=== PATIENT | male | born 1985 | race Caucasian/White ===

== ENCOUNTER 2020-03-23 16:18 | Inpatient (IN) | payer MEDICAID, OTHER ==
[~2020-03-23] VITALS: Ht 167.6 cm; Wt 86.2 kg
[2020-03-23] MEDS ORDERED: ACETAMINOPHEN 325MG TABLET PO STA (17:32)
[2020-03-23] MEDS ORDERED: SODIUM CHLORIDE 0.9% 1,000 ML IV ONE (17:32)
[2020-03-23] MEDS ORDERED: ACETAMINOPHEN WITH CODEINE 300/30MG TABLET PO STA (17:32)
[2020-03-23 18:06] LABS: CHLORIDE 110 mEq/L (98-107)
[2020-03-23 18:15] LABS: CREATINE KINASE 364 IU/L (39-308)
[2020-03-23] MEDS ORDERED: AZITHROMYCIN 500 MG in DEXT 5% WATER 250 ML IV ONE (18:15)
[2020-03-23] MEDS ORDERED: CEFTRIAXONE 1 G PREMIX 50 ML IV ONE (18:15)
[2020-03-23 18:38] LABS: D-DIMER 0.25 mg/L FEU (<0.50); PROTHROMBIN TIME 10.5 sec (9.6-11.0)
[2020-03-23 19:42] LABS: BASOPHILS % 0.4 % (0.0-2.0); HEMATOCRIT. 41.5 % (42.0-52.0); HEMOGLOBIN. 14.4 g/dL (14.0-18.0); LYMPHOCYTES % 10.4 % (20.0-50.0); MEAN CORPUSCULAR HEMOGLOBIN 30.7 pg (28.0-32.0); MEAN CORPUSCULAR VOLUME 88.6 fL (80.0-94.0); MEAN PLATELET VOLUME 8.3 fl (7.4-10.4); MONOCYTES % 5.4 % (2.0-8.0); NEUTROPHILS % 83.8 % (40.0-76.0); PLATELET 165 x1000/uL (130-400); RED BLOOD CELL COUNT 4.68 mill/uL (4.7-6.1); RED CELL DISTRIBUTION WIDTH 12.6 % (11.6-14.6)
[2020-03-23] MEDS ORDERED: ALBUTEROL 6.7GM HFA INHALER ORI PRN (19:45)
[2020-03-23] MEDS ORDERED: ONDANSETRON HCL 4MG/2ML INJ IV PRN (19:45)
[2020-03-23 19:48] LABS: CLARITY URINE CLEAR (CLEAR); COLOR URINE YELLOW (YELLOW); KETONES URINE NEGATIVE (NEGATIVE); LEUKOCYTE ESTERASE URINE NEGATIVE (NEGATIVE); NITRITE URINE NEGATIVE (NEGATIVE); OCCULT BLOOD URINE NEGATIVE (NEGATIVE); PROTEIN URINE TRACE (NEGATIVE); SPECIFIC GRAVITY URINE 1.015 (1.005-1.030); UROBILINOGEN URINE 0.2 E.U./dL (0.2-1.0)
[2020-03-23 21:45] VITALS: BP 102/67
[2020-03-23] MEDS: SODIUM CHLORIDE 0.9% INJ 3ML FLUSH IVF SCH (23:23)
[2020-03-24] MEDS: ACETAMINOPHEN 325MG TABLET PO PRN ×3 (00:05→21:24)
[2020-03-24 00:20] VITALS: BP 111/65
[2020-03-24 04:00] VITALS: BP 113/68
[2020-03-24] MEDS: SODIUM CHLORIDE 0.9% INJ 3ML FLUSH IVF SCH ×3 (06:09→21:26)
[2020-03-24 07:49] VITALS: BP 108/69
[2020-03-24 11:51] VITALS: BP 117/73
[2020-03-24] MEDS: DEXAMETHASONE 10 MG/ML VIAL IV SCH (15:41)
[2020-03-24 16:00] VITALS: BP 116/78
[2020-03-24] MEDS: CEFTRIAXONE 1 G PREMIX 50 ML IV SCH (17:01)
[2020-03-24] MEDS ORDERED: CEFTRIAXONE 1 G PREMIX 50 ML IV SCH (18:00)
[2020-03-24] MEDS: AZITHROMYCIN 500 MG in DEXT 5% WATER 250 ML IV SCH (18:03)
[2020-03-24] MEDS ORDERED: AZITHROMYCIN 500 MG in DEXT 5% WATER 250 ML IV SCH (19:00)
[2020-03-24 20:00] VITALS: BP 111/70
[2020-03-25] VITALS: BP 113/69
[2020-03-25 04:00] VITALS: BP 106/70
[2020-03-25 05:17] LABS: CHLORIDE 107 mEq/L (98-107)
[2020-03-25] MEDS: SODIUM CHLORIDE 0.9% INJ 3ML FLUSH IVF SCH ×3 (05:28→20:48)
[2020-03-25] MEDS: GUAIFENESIN 200MG/10ML SUGAR FREE UDC PO PRN ×2 (05:59→16:01)
[2020-03-25 08:00] VITALS: BP 113/71
[2020-03-25] MEDS: DEXAMETHASONE 10 MG/ML VIAL IV SCH (08:10)
[2020-03-25] MEDS: ACETAMINOPHEN 325MG TABLET PO PRN ×2 (08:10→23:21)
[2020-03-25 12:00] VITALS: BP 123/80
[2020-03-25] MEDS: ENOXAPARIN 100MG/ML SYR SUBCUT SCH ×2 (12:30→20:48)
[2020-03-25] MEDS: HYDROCODONE/ACETAMINOPHEN 5/325MG TABLET PO PRN (15:08)
[2020-03-25 16:00] VITALS: BP 125/80
[2020-03-25] MEDS: CEFTRIAXONE 1 G PREMIX 50 ML IV SCH (17:04)
[2020-03-25] MEDS: ALBUTEROL 6.7GM HFA INHALER ORI SCH (18:00)
[2020-03-25] MEDS: AZITHROMYCIN 500 MG in DEXT 5% WATER 250 ML IV SCH (19:04)
[2020-03-25 20:00] VITALS: BP 124/81
[2020-03-25] MEDS: ZOLPIDEM TARTRATE 5MG TABLET PO PRN (21:05)
[2020-03-25] MEDS: BENZONATATE 100MG CAPSULE PO PRN (21:05)
[2020-03-26] VITALS: BP 116/80
[2020-03-26 04:00] VITALS: BP 113/63
[2020-03-26] MEDS: ACETAMINOPHEN 325MG TABLET PO PRN ×3 (04:51→20:04)
[2020-03-26] MEDS: ALBUTEROL 6.7GM HFA INHALER ORI SCH ×5 (05:35→23:59)
[2020-03-26] MEDS: SODIUM CHLORIDE 0.9% INJ 3ML FLUSH IVF SCH ×3 (05:36→20:05)
[2020-03-26 08:00] VITALS: BP 115/71
[2020-03-26] MEDS: ENOXAPARIN 100MG/ML SYR SUBCUT SCH ×2 (08:28→20:05)
[2020-03-26] MEDS: DEXAMETHASONE 4MG TABLET PO SCH (08:28)
[2020-03-26 12:00] VITALS: BP 120/79
[2020-03-26 16:00] VITALS: BP 117/76
[2020-03-26] MEDS: CEFTRIAXONE 1 G PREMIX 50 ML IV SCH (17:04)
[2020-03-26] MEDS: AZITHROMYCIN 500 MG in DEXT 5% WATER 250 ML IV SCH (18:35)
[2020-03-26 20:00] VITALS: BP 113/74
[2020-03-26] MEDS: ZOLPIDEM TARTRATE 5MG TABLET PO PRN (20:04)
[2020-03-26] MEDS: BENZONATATE 100MG CAPSULE PO PRN (20:42)
[2020-03-27] VITALS: BP 131/83
[2020-03-27] MEDS: ACETAMINOPHEN 325MG TABLET PO PRN ×3 (00:09→15:26)
[2020-03-27 04:00] VITALS: BP 105/64
[2020-03-27] MEDS: SODIUM CHLORIDE 0.9% INJ 3ML FLUSH IVF SCH ×3 (05:25→22:36)
[2020-03-27] MEDS: ALBUTEROL 6.7GM HFA INHALER ORI SCH ×3 (05:25→17:45)
[2020-03-27 07:25] LABS: BASOPHILS % 0.3 % (0.0-2.0); HEMATOCRIT. 44.8 % (42.0-52.0); HEMOGLOBIN. 15.8 g/dL (14.0-18.0); LYMPHOCYTES % 9.1 % (20.0-50.0); MEAN CORPUSCULAR HEMOGLOBIN 30.5 pg (28.0-32.0); MEAN CORPUSCULAR VOLUME 86.8 fL (80.0-94.0); MEAN PLATELET VOLUME 8.8 fl (7.4-10.4); MONOCYTES % 6.7 % (2.0-8.0); NEUTROPHILS % 83.9 % (40.0-76.0); PLATELET 188 x1000/uL (130-400); RED BLOOD CELL COUNT 5.17 mill/uL (4.7-6.1); RED CELL DISTRIBUTION WIDTH 12.5 % (11.6-14.6)
[2020-03-27 07:49] LABS: CHLORIDE 106 mEq/L (98-107)
[2020-03-27 08:00] VITALS: BP 117/73
[2020-03-27] MEDS: LOPERAMIDE HCL 2MG CAPSULE PO PRN (08:59)
[2020-03-27] MEDS: ENOXAPARIN 100MG/ML SYR SUBCUT SCH ×2 (08:59→22:36)
[2020-03-27] MEDS: DEXAMETHASONE 4MG TABLET PO SCH ×2 (09:00→10:51)
[2020-03-27] MEDS: BENZONATATE 100MG CAPSULE PO PRN ×2 (09:02→23:50)
[2020-03-27 12:00] VITALS: BP 116/69
[2020-03-27] MEDS ORDERED: POTASSIUM CHLORIDE 20MEQ TABLET SR PO NR (12:00)
[2020-03-27 16:05] VITALS: BP 115/65
[2020-03-27 17:16] LABS: CHLORIDE 107 mEq/L (98-107)
[2020-03-27] MEDS: CEFTRIAXONE 1 G PREMIX 50 ML IV SCH (17:22)
[2020-03-27] MEDS: AZITHROMYCIN 500 MG in DEXT 5% WATER 250 ML IV SCH (18:10)
[2020-03-27 20:00] VITALS: BP 114/72
[2020-03-27] MEDS: HYDROCODONE/ACETAMINOPHEN 5/325MG TABLET PO PRN (22:37)
[2020-03-27] MEDS: ZOLPIDEM TARTRATE 5MG TABLET PO PRN (22:37)
[2020-03-27] MEDS: DIPHENHYDRAMINE 50MG/ML VIAL IV PRN (23:50)
[2020-03-28] VITALS: BP 110/70
[2020-03-28 08:01] VITALS: BP 107/59
[2020-03-28] MEDS: ENOXAPARIN 100MG/ML SYR SUBCUT SCH ×2 (08:21→21:42)
[2020-03-28] MEDS: GUAIFENESIN/CODEINE 200-20MG/10ML UDC PO PRN ×3 (08:21→23:22)
[2020-03-28] MEDS: SODIUM CHLORIDE 0.9% INJ 3ML FLUSH IVF SCH ×3 (08:22→21:56)
[2020-03-28] MEDS: DEXAMETHASONE 4MG TABLET PO SCH (08:22)
[2020-03-28] MEDS: ACETAMINOPHEN 325MG TABLET PO PRN ×2 (08:23→21:43)
[2020-03-28] MEDS: ALBUTEROL 6.7GM HFA INHALER ORI SCH ×4 (08:25→17:20)
[2020-03-28 12:00] VITALS: BP 111/73
[2020-03-28 16:00] VITALS: BP 116/68
[2020-03-28] MEDS: HYDROCODONE/ACETAMINOPHEN 5/325MG TABLET PO PRN (16:24)
[2020-03-28] MEDS: REMDESIVIR 200 MG in SODIUM CHLORIDE 0.9% 250 ML IV NR ×2 (16:25→16:36)
[2020-03-28] MEDS: CEFTRIAXONE 1 G PREMIX 50 ML IV SCH (17:22)
[2020-03-28 18:03] LABS: HCG SCREEN NEGATIVE
[2020-03-28 20:00] VITALS: BP 112/75
[2020-03-28] MEDS: TEMAZEPAM 15MG CAPSULE PO PRN (21:43)
[2020-03-29] VITALS (7 sets, daily range): BP systolic 97–124; BP diastolic 54–76
[2020-03-29] MEDS: SODIUM CHLORIDE 0.9% INJ 3ML FLUSH IVF SCH ×3 (05:45→22:00)
[2020-03-29] MEDS: ALBUTEROL 6.7GM HFA INHALER ORI SCH ×5 (06:11→23:28)
[2020-03-29 08:19] LABS: CHLORIDE 108 mEq/L (98-107)
[2020-03-29] MEDS: ENOXAPARIN 100MG/ML SYR SUBCUT SCH ×2 (08:35→21:59)
[2020-03-29] MEDS: DEXAMETHASONE 4MG TABLET PO SCH (08:36)
[2020-03-29] MEDS: REMDESIVIR 100 MG in SODIUM CHLORIDE 0.9% 250 ML IV SCH (13:14)
[2020-03-29] MEDS: LOPERAMIDE HCL 2MG CAPSULE PO PRN (22:00)
[2020-03-29] MEDS: ACETAMINOPHEN 325MG TABLET PO PRN (22:01)
[2020-03-29] MEDS: BENZONATATE 100MG CAPSULE PO PRN (23:27)
[2020-03-29] MEDS: TEMAZEPAM 15MG CAPSULE PO PRN (23:27)
[2020-03-29] MEDS: PROMETHAZINE/DEXTROMETHORPHAN 6.25-15MG/5ML BOTTLE 120ML PO PRN (23:28)
[2020-03-30] VITALS: BP 111/77
[2020-03-30 04:00] VITALS: BP 110/72
[2020-03-30] MEDS: SODIUM CHLORIDE 0.9% INJ 3ML FLUSH IVF SCH ×3 (05:55→20:26)
[2020-03-30] MEDS: ALBUTEROL 6.7GM HFA INHALER ORI SCH ×4 (05:56→23:57)
[2020-03-30] MEDS: ACETAMINOPHEN 325MG TABLET PO PRN (06:36)
[2020-03-30] MEDS: PROMETHAZINE/DEXTROMETHORPHAN 6.25-15MG/5ML BOTTLE 120ML PO PRN ×3 (06:36→20:32)
[2020-03-30 06:55] LABS: CHLORIDE 109 mEq/L (98-107)
[2020-03-30 08:00] VITALS: BP 104/64
[2020-03-30] MEDS: ENOXAPARIN 100MG/ML SYR SUBCUT SCH ×2 (09:15→20:26)
[2020-03-30] MEDS: BENZONATATE 100MG CAPSULE PO PRN ×2 (09:16→17:32)
[2020-03-30] MEDS: DEXAMETHASONE 4MG TABLET PO SCH (09:16)
[2020-03-30 12:00] VITALS: BP 108/71
[2020-03-30] MEDS: REMDESIVIR 100 MG in SODIUM CHLORIDE 0.9% 250 ML IV SCH (14:22)
[2020-03-30 16:00] VITALS: BP 109/74
[2020-03-30 20:00] VITALS: BP 111/76
[2020-03-30] MEDS: TEMAZEPAM 15MG CAPSULE PO PRN (21:56)
[2020-03-31] VITALS (7 sets, daily range): BP systolic 97–136; BP diastolic 58–72
[2020-03-31] MEDS: SODIUM CHLORIDE 0.9% INJ 3ML FLUSH IVF SCH ×3 (05:09→20:44)
[2020-03-31] MEDS: ALBUTEROL 6.7GM HFA INHALER ORI SCH ×3 (05:09→18:37)
[2020-03-31 05:25] LABS: CHLORIDE 105 mEq/L (98-107)
[2020-03-31] MEDS: ENOXAPARIN 100MG/ML SYR SUBCUT SCH ×2 (09:35→20:43)
[2020-03-31] MEDS: DEXAMETHASONE 4MG TABLET PO SCH (09:35)
[2020-03-31 13:04] LABS: BG BASE EXCESS -0.8 mmol/L (-2.0-2.0); BG CARBOXYHEMOGLOBIN 0.2 % (0.5-1.5); BG DEOXYHEMOGLOBIN 1.7 % (0.0-5.0); BG FRACTION INSPIRED OXYGEN 100; BG HCO3 ACT 23.1 mmol/L (22.0-26.0); BG METHEMOGLOBIN 0.3 % (0.0-1.5); BG OXYGEN SATURATION 98.3 % (92.0-98.5); BG OXYHEMOGLOBIN 97.8 % (94.0-97.0); BG PCO2 36.3 mmHg (35.0-45.0); BG PH 7.421 (7.350-7.450); BG PO2 127.8 mmHg (75.0-100.0); BG SAMPLE SITE RIGHT RADIAL; BG VENT MODE MASK - NRB
[2020-03-31] MEDS: REMDESIVIR 100 MG in SODIUM CHLORIDE 0.9% 250 ML IV SCH (13:55)
[2020-03-31] MEDS: ACETAMINOPHEN 325MG TABLET PO PRN (13:57)
[2020-03-31] MEDS: PROMETHAZINE/DEXTROMETHORPHAN 6.25-15MG/5ML BOTTLE 120ML PO PRN (13:57)
[2020-03-31] MEDS: BENZONATATE 100MG CAPSULE PO PRN (20:43)
[2020-03-31] MEDS: TEMAZEPAM 15MG CAPSULE PO PRN (22:18)
[2020-04-01] VITALS: BP 99/63
[2020-04-01 04:00] VITALS: BP 90/59
[2020-04-01] MEDS: ALBUTEROL 6.7GM HFA INHALER ORI SCH ×5 (05:45→23:26)
[2020-04-01] MEDS: SODIUM CHLORIDE 0.9% INJ 3ML FLUSH IVF SCH ×3 (05:45→21:44)
[2020-04-01 07:42] LABS: CHLORIDE 105 mEq/L (98-107)
[2020-04-01 08:00] VITALS: BP 100/60
[2020-04-01] MEDS: ENOXAPARIN 100MG/ML SYR SUBCUT SCH (10:12)
[2020-04-01] MEDS: DEXAMETHASONE 4MG TABLET PO SCH (10:13)
[2020-04-01 12:00] VITALS: BP 103/66
[2020-04-01] MEDS: REMDESIVIR 100 MG in SODIUM CHLORIDE 0.9% 250 ML IV SCH (14:18)
[2020-04-01 16:00] VITALS: BP 104/68
[2020-04-01 20:00] VITALS: BP 117/73
[2020-04-01] MEDS: ENOXAPARIN 80MG/0.8ML SYR SUBCUT SCH (21:45)
[2020-04-02] VITALS: BP 98/62
[2020-04-02 04:00] VITALS: BP 100/62
[2020-04-02] MEDS: ALBUTEROL 6.7GM HFA INHALER ORI SCH ×3 (05:11→18:24)
[2020-04-02] MEDS: SODIUM CHLORIDE 0.9% INJ 3ML FLUSH IVF SCH ×3 (05:11→22:04)
[2020-04-02 08:00] VITALS: BP 99/66
[2020-04-02] MEDS: ENOXAPARIN 80MG/0.8ML SYR SUBCUT SCH ×2 (09:09→22:04)
[2020-04-02] MEDS: DEXAMETHASONE 4MG TABLET PO SCH (09:09)
[2020-04-02 12:00] VITALS: BP 101/62
[2020-04-02 16:00] VITALS: BP 104/73
[2020-04-02 20:00] VITALS: BP 103/78
[2020-04-03] MEDS: BENZONATATE 100MG CAPSULE PO PRN ×3 (00:37→20:19)
[2020-04-03] MEDS: ALBUTEROL 6.7GM HFA INHALER ORI SCH ×4 (00:37→18:00)
[2020-04-03 01:41] VITALS: BP 105/66
[2020-04-03 04:00] VITALS: BP 102/60
[2020-04-03] MEDS: SODIUM CHLORIDE 0.9% INJ 3ML FLUSH IVF SCH ×3 (05:31→21:39)
[2020-04-03 08:00] VITALS: BP 100/60
[2020-04-03] MEDS: DEXAMETHASONE 4MG TABLET PO SCH (10:02)
[2020-04-03] MEDS: ENOXAPARIN 80MG/0.8ML SYR SUBCUT SCH ×2 (10:02→20:19)
[2020-04-03 12:00] VITALS: BP 94/58
[2020-04-03 16:00] VITALS: BP 106/66
[2020-04-03 20:00] VITALS: BP 119/75
[2020-04-03] MEDS: DIPHENHYDRAMINE 50MG/ML VIAL IV PRN (22:29)
[2020-04-03] MEDS: PROMETHAZINE/DEXTROMETHORPHAN 6.25-15MG/5ML BOTTLE 120ML PO PRN (22:40)
[2020-04-04] VITALS: BP 106/65
[2020-04-04 04:00] VITALS: BP 103/68
[2020-04-04] MEDS: SODIUM CHLORIDE 0.9% INJ 3ML FLUSH IVF SCH ×3 (05:46→20:20)
[2020-04-04] MEDS: ALBUTEROL 6.7GM HFA INHALER ORI SCH ×5 (05:46→22:57)
[2020-04-04 08:00] VITALS: BP 99/54
[2020-04-04] MEDS: DEXAMETHASONE 4MG TABLET PO SCH (09:39)
[2020-04-04] MEDS: ENOXAPARIN 80MG/0.8ML SYR SUBCUT SCH ×2 (09:39→20:20)
[2020-04-04 12:00] VITALS: BP 99/55
[2020-04-04 16:00] VITALS: BP 109/62
[2020-04-04 20:00] VITALS: BP 109/63
[2020-04-05] VITALS: BP 98/60
[2020-04-05] MEDS: BENZONATATE 100MG CAPSULE PO PRN ×2 (00:51→20:58)
[2020-04-05 04:00] VITALS: BP_SYST 94; BP_SYST 99; BP_DIAS 55; BP_DIAS 63
[2020-04-05] MEDS: ALBUTEROL 6.7GM HFA INHALER ORI SCH ×3 (05:26→18:33)
[2020-04-05] MEDS: SODIUM CHLORIDE 0.9% INJ 3ML FLUSH IVF SCH ×3 (05:26→20:23)
[2020-04-05 08:00] VITALS: BP 99/63
[2020-04-05] MEDS: ENOXAPARIN 80MG/0.8ML SYR SUBCUT SCH ×2 (08:14→20:22)
[2020-04-05] MEDS: DEXAMETHASONE 4MG TABLET PO SCH (08:14)
[2020-04-05] MEDS: PROMETHAZINE/DEXTROMETHORPHAN 6.25-15MG/5ML BOTTLE 120ML PO PRN (08:15)
[2020-04-05 12:00] VITALS: BP 102/68
[2020-04-05 16:00] VITALS: BP 111/75
[2020-04-05 20:00] VITALS: BP 127/75
[2020-04-05] MEDS: DIPHENHYDRAMINE 50MG/ML VIAL IV PRN (20:58)
[2020-04-06] VITALS: BP 104/61
[2020-04-06 04:00] VITALS: BP 110/72
[2020-04-06] MEDS: DEXAMETHASONE 4MG TABLET PO SCH (08:04)
[2020-04-06] MEDS: ENOXAPARIN 80MG/0.8ML SYR SUBCUT SCH ×2 (08:04→20:45)
[2020-04-06 08:50] VITALS: BP 93/61
[2020-04-06 11:20] VITALS: BP 104/59
[2020-04-06] MEDS: ALBUTEROL 6.7GM HFA INHALER ORI SCH ×3 (12:10→18:24)
[2020-04-06] MEDS: SODIUM CHLORIDE 0.9% INJ 3ML FLUSH IVF SCH ×2 (13:46→20:44)
[2020-04-06 16:49] VITALS: BP 104/69
[2020-04-06 20:00] VITALS: BP 98/64
[2020-04-06] MEDS: DIPHENHYDRAMINE 50MG/ML VIAL IV PRN (23:45)
[2020-04-07] VITALS: BP 108/62
[2020-04-07] MEDS: ALBUTEROL 6.7GM HFA INHALER ORI SCH ×5 (00:18→23:45)
[2020-04-07 04:00] VITALS: BP 105/58
[2020-04-07] MEDS: SODIUM CHLORIDE 0.9% INJ 3ML FLUSH IVF SCH ×3 (05:01→21:04)
[2020-04-07 08:00] VITALS: BP 105/66
[2020-04-07] MEDS: DEXAMETHASONE 4MG TABLET PO SCH (09:25)
[2020-04-07] MEDS: ENOXAPARIN 80MG/0.8ML SYR SUBCUT SCH (09:25)
[2020-04-07 12:00] VITALS: BP 106/65
[2020-04-07 13:17] LABS: BG BASE EXCESS -4.3 mmol/L (-2.0-2.0); BG CARBOXYHEMOGLOBIN 0.5 % (0.5-1.5); BG DEOXYHEMOGLOBIN 5.7 % (0.0-5.0); BG FRACTION INSPIRED OXYGEN 21; BG HCO3 ACT 18.8 mmol/L (22.0-26.0); BG METHEMOGLOBIN 0.2 % (0.0-1.5); BG OXYGEN SATURATION 94.3 % (92.0-98.5); BG OXYHEMOGLOBIN 93.6 % (94.0-97.0); BG PCO2 29.4 mmHg (35.0-45.0); BG PH 7.423 (7.350-7.450); BG PO2 70.9 mmHg (75.0-100.0); BG SAMPLE SITE RIGHT RADIAL; BG TOTAL HEMOGLOBIN 14.5 g/dL (12.0-18.0); BG VENT MODE ROOM AIR
[2020-04-07 20:00] VITALS: BP 100/66
[2020-04-07] MEDS: ENOXAPARIN 100MG/ML SYR SUBCUT SCH (21:04)
[2020-04-08] VITALS: BP 102/61
[2020-04-08 04:00] VITALS: BP 101/57
[2020-04-08] MEDS: SODIUM CHLORIDE 0.9% INJ 3ML FLUSH IVF SCH ×2 (05:20→13:01)
[2020-04-08] MEDS: ALBUTEROL 6.7GM HFA INHALER ORI SCH ×2 (05:21→13:01)
[2020-04-08 08:11] VITALS: BP 103/63
[2020-04-08] MEDS: DEXAMETHASONE 4MG TABLET PO SCH (09:39)
[2020-04-08] MEDS: ENOXAPARIN 100MG/ML SYR SUBCUT SCH (09:40)
[2020-04-08 12:10] VITALS: BP 97/57
[2020-04-08 15:10] VITALS: BP 100/58
== END 2020-04-08 16:09 | disposition home or self-care (01) | DRG 720 ==
LOC: ER 16:18 → 7WST 19:27 → EDBEDREQ 19:29 → EDBEDREQTM 19:29 → ENRESERV 20:47
PROVIDERS: ADMIT Internal Medicine; ATTEND Internal Medicine
DX: A41.89 Other specified sepsis (principal); U07.1 COVID-19; J96.01 Acute respiratory failure with hypoxia; A85.8 Other specified viral encephalitis; E86.0 Dehydration; K52.9 Noninfective gastroenteritis and colitis, unspecified; B97.89 Other viral agents as the cause of diseases classified elsewhere; J12.89 Other viral pneumonia
CPT/HCPCS: 36415; 36600; 71045; 80048; 80053; 81003; 82375; 82550; 82728; 82805; 82962; 83605; 83615; 83880; 84145; 84484; 84703; 85025; 85379; 85384; 86140; 86850; 86900; 86927; 93005; 99291; J0456; J0696; J1100; J1200; J1650; J7030; J7050; J7060; J8540; P9017; Q9957

== ENCOUNTER 2020-06-27 21:21 | Inpatient (IN) | payer MEDICAID, OTHER ==
[~2020-06-27] VITALS: Ht 170.2 cm; Wt 90.3 kg
[2020-06-27] MEDS ORDERED: SODIUM CHLORIDE 0.9% 1,000 ML IV ONE (23:00)
[2020-06-27] MEDS ORDERED: ONDANSETRON HCL 4MG/2ML INJ IV ONE (23:45)
[2020-06-27] MEDS ORDERED: ONDANSETRON HCL 4MG/2ML INJ ONE (23:48)
[2020-06-28 00:03] LABS: HEMATOCRIT 48.6 % (42.0-52.0); HEMOGLOBIN 16.7 g/dL (14.0-18.0); MEAN CORPUSCULAR HEMOGLOBIN 30.5 pg (28.0-32.0); MEAN CORPUSCULAR VOLUME 88.6 fL (80.0-94.0); PLATELET 235 x1000/uL (130-400); RED BLOOD CELL COUNT 5.48 mill/uL (4.7-6.1); RED CELL DISTRIBUTION WIDTH 13.1 % (11.6-14.6)
[2020-06-28 00:11] LABS: CHLORIDE 104 mEq/L (98-107)
[2020-06-28] MEDS ORDERED: CEFTRIAXONE 1 G PREMIX 50 ML IV SCH ×2 (00:30→09:15)
[2020-06-28] MEDS ORDERED: ENOXAPARIN 80MG/0.8ML SYR SUBCUT SCH (01:00)
[2020-06-28] MEDS ORDERED: AZITHROMYCIN 500 MG in DEXT 5% WATER 250 ML IV SCH (01:00)
[2020-06-28 01:31] LABS: PARTIAL THROMBOPLASTIN TIME 27.9 sec (23.4-31.0); PROTHROMBIN TIME 10.3 sec (9.6-11.0)
[2020-06-28 09:04] VITALS: BP 116/69
[2020-06-28 12:00] VITALS: BP 113/64
[2020-06-28 14:56] LABS: *COCAINE SCREEN URINE NEGATIVE (NEGATIVE); CANNABINOID URINE SCREEN NEGATIVE (NEGATIVE); METHADONE URINE SCREEN NEGATIVE (NEGATIVE); OPIATES URINE SCREEN NEGATIVE (NEGATIVE)
[2020-06-28 14:57] LABS: *AMPHETAMINES SCREEN URINE NEGATIVE (NEGATIVE); *BARBITURATES SCREEN URINE NEGATIVE (NEGATIVE); *BENZODIAZEPINES SCREEN URINE NEGATIVE (NEGATIVE); PHENCYCLIDINE URINE SCREEN NEGATIVE (NEGATIVE)
[2020-06-28] MEDS: SODIUM CHLORIDE 0.45% 1,000 ML IV SCH (15:24)
[2020-06-28 16:00] VITALS: BP 120/79
[2020-06-28 17:44] LABS: CLARITY URINE CLEAR (CLEAR); COLOR URINE YELLOW (YELLOW); KETONES URINE NEGATIVE (NEGATIVE); LEUKOCYTE ESTERASE URINE NEGATIVE (NEGATIVE); NITRITE URINE NEGATIVE (NEGATIVE); OCCULT BLOOD URINE NEGATIVE (NEGATIVE); PH URINE 5.5 (4.5-8.0); PROTEIN URINE NEGATIVE (NEGATIVE); SPECIFIC GRAVITY URINE 1.017 (1.005-1.030); UROBILINOGEN URINE 0.2 E.U./dL (0.2-1.0)
[2020-06-28 20:00] VITALS: BP 111/66
[2020-06-28] MEDS: METRONIDAZOLE 500 MG PREMIX 100 ML IV SCH (20:16)
[2020-06-28] MEDS ORDERED: AZITHROMYCIN 250 MG TABLET PO SCH (21:00)
[2020-06-28] MEDS ORDERED: CEFTRIAXONE 1,000 MG in DEXTROSE 5% WATER 50 ML IV SCH (23:00)
[2020-06-29] VITALS (7 sets, daily range): BP systolic 106–116; BP diastolic 65–76
[2020-06-29] MEDS ORDERED: AZITHROMYCIN 500 MG in DEXT 5% WATER 250 ML IV SCH (01:00)
[2020-06-29] MEDS: SODIUM CHLORIDE 0.45% 1,000 ML IV SCH (03:39)
[2020-06-29] MEDS: METRONIDAZOLE 500 MG PREMIX 100 ML IV SCH ×2 (03:39→12:04)
[2020-06-29] MEDS ORDERED: ENOXAPARIN 40MG/0.4ML SYR SUBCUT SCH (09:00)
[2020-06-29 11:52] LABS: BASOPHILS % 0.5 % (0.0-2.0); EOSINOPHILS % 3.5 % (0.0-5.0); HEMATOCRIT. 44.7 % (42.0-52.0); LYMPHOCYTES % 24.8 % (20.0-50.0); MEAN CORPUSCULAR VOLUME 89.2 fL (80.0-94.0); MEAN PLATELET VOLUME 8.6 fl (7.4-10.4); MONOCYTES % 11.7 % (2.0-8.0); NEUTROPHILS % 59.5 % (40.0-76.0); PLATELET 246 x1000/uL (130-400); RED BLOOD CELL COUNT 5.02 mill/uL (4.7-6.1); RED CELL DISTRIBUTION WIDTH 12.9 % (11.6-14.6)
[2020-06-29 12:14] LABS: CHLORIDE 107 mEq/L (98-107)
[2020-06-30] MEDS ORDERED: ENOXAPARIN 30MG/0.3ML SYR SUBCUT SCH (09:00)
== END 2020-06-29 17:47 | disposition home or self-care (01) | DRG 720 ==
LOC: ER 21:21 → 7WST 06-28 01:35 → EDBEDREQ 06-28 01:45 → ENRESERV 06-28 07:31 → 7WST 06-28 08:50 → 6WST 06-29 02:42
PROVIDERS: ADMIT Internal Medicine Nephrology; ATTEND Internal Medicine Nephrology
DX: A41.9 Sepsis, unspecified organism (principal); K52.9 Noninfective gastroenteritis and colitis, unspecified; E86.0 Dehydration; R17 Unspecified jaundice; Z20.828 Contact with and (suspected) exposure to other viral communicable diseases; Z86.19 Personal history of other infectious and parasitic diseases
CPT/HCPCS: 36415; 71045; 74018; 76700; 80048; 80053; 80305; 81003; 83605; 83615; 84145; 85025; 85027; 85379; 87015; 87045; 87427; 87449; 87493; 99291; J0456; J0696; J1650; J2405; J3490; J7030; J7060; U0003-CS